=== PATIENT | male | born 1995 | race Caucasian/White ===

== ENCOUNTER 2020-06-24 08:39 | Emergency (ER) | payer BC ==
--- NOTE | 2020-06-24 10:15 | EDM.PDOC ---
ED [facility] GENERAL MEDICAL PROBLEM - General Chief Complaint: Lower Extremity Injury/Pain Stated Complaint: right ankle pain Time Seen by Provider: 06/24/20 09:15 Source of Information: Reports: Patient History Limitations: Reports: No Limitations - History of Present Illness INITIAL COMMENTS - FREE TEXT/NARRATIVE: Fell from deer stand[place]deer stand slipped. Went down approx 4 feet and landed feet first. Wearing heavy supportive boots. Has discomfort right lateral forefoot when he walks. No ankle pain. Able to bear full weight on ankle but not on forefoot. Right Ankle Pain Score (Numeric/FACES): 7 - Related Data Allergies Allergy/AdvReac Type Severity Reaction Status Date / Time sulfasalazine Allergy Rash Verified 06/24/20 08:42 Review of Systems - Review of Systems Review Of Systems: Comprehensive ROS is negative, except as noted in HPI. ED EXAM, GENERAL - Physical Exam Exam: See Below Exam Limited By: No Limitations General Appearance: Alert, WD/WN, No Apparent Distress Ears: Hearing Grossly Normal Nose: No: Nasal Deformity Head: Atraumatic, Normocephalic Neck: Supple Respiratory/Chest: No Respiratory Distress Extremities: Other (Exam of affected right foot shows no obvious deformity/discoloration/swelling of either ankle or foot. Can wiggle toes. Ankle retains good ROM. Some tenderness wit palpation dorsal lateral half of fore foot distal to ankle. Toes nontender. ) Course - Vital Signs Last Recorded V/S: Last Vital Signs Temp 37.3 C 06/24/20 08:51 Pulse 80 06/24/20 08:51 Resp 18 06/24/20 08:51 BP 144/71 H 06/24/20 08:51 Pulse Ox 100 06/24/20 08:51 - Orders/Labs/Meds Orders: Active Orders 24 hr Category Date Time Status Ankle Min 3V Rt [CR] Stat Exams 06/24/20 08:52 Stop Req Foot 2V Rt [CR] Stat Exams 06/24/20 09:00 Ordered - Re-Assessments/Exams Free Text/Narrative Re-Assessment/Exam: 06/24/20 09:43 Xray obtained and no obvious fracture noted. Pending formal radiology review. Patient declined shauna wrap/crutches. Will call patient if official report suggestive of fracture. Otherwise usual precautions/aftercare reviewed and to follow up as needed. Departure - Departure Time of Disposition: 09:35 Disposition: Home, Self-Care 01 Condition: Good Clinical Impression: Right foot injury Qualifiers: Encounter type: initial encounter Qualified Code(s): S99.921A - Unspecified injury of right foot, initial encounter - Discharge Information *PRESCRIPTION DRUG MONITORING PROGRAM REVIEWED*: Not Applicable *COPY OF PRESCRIPTION DRUG MONITORING REPORT IN PATIENT ARNEL: Not Applicable Instructions: Ankle Sprain, Cuti-ov-Hotz Referrals: Norma William NP [Primary Care Provider] - Forms: ED Department Discharge Additional Instructions: Take it easy today/ice sore areas. Advance activity as tolerated. If pain not significantly improved after a week follow up for new xray. Sepsis Event Note (ED) - Evaluation Sepsis Screening Result: No Definite Risk - Focused Exam Vital Signs: Vital Signs Temp Pulse Resp BP Pulse Ox 06/24/20 08:51 37.3 C 80 18 144/71 H 100 - My Orders Last 24 Hours: My Active Orders 06/24/20 08:52 Ankle Min 3V Rt [CR] Stat 06/24/20 09:00 Foot 2V Rt [CR] Stat - Assessment/Plan Last 24 Hours: My Active Orders 06/24/20 08:52 Ankle Min 3V Rt [CR] Stat 06/24/20 09:00 Foot 2V Rt [CR] Stat
== END 2020-06-24 09:40 | disposition home or self-care (01) ==
LOC: LL.ED 08:39
DX: S99.921A Unspecified injury of right foot, initial encounter (principal); W01.0XXA Fall on same level from slipping, tripping and stumbling without subsequent striking against object, initial encounter; Z88.2 Allergy status to sulfonamides
CPT/HCPCS: 73630-RT; 99282; 99283-25